=== PATIENT | female | born 2000 | race Caucasian/White ===

== ENCOUNTER 2019-08-20 09:15 | Emergency (ER) | payer BC, OTHER ==
[2019-08-20] MEDS ORDERED: SODIUM CHLORIDE 1,000 ML IV STA (09:21)
--- NOTE | 2019-08-20 09:24 | PDOC ---
Rapid Medical Evaluation Time Seen by Provider: 08/20/19 09:19 Medical Evaluation: Allergies Allergy/AdvReac Type Severity Reaction Status Date / Time No Known Allergies Allergy Verified 08/20/19 09:20 08/20/19 09:22 CC: luq cramping x 2 months with vomiting in the am daily, + weight loss, dark stools, was told by urgent care clinic last month and was told she had a "uti" and took abx with no improvement, menses regular ExaM: LUQ tenderness, vss, afebrile Plan: labs, urione, ivf, stool for occult blood Discharge Disposition - Diagnosis Vomiting - Referrals - Patient Instructions - Post Discharge Activity
[2019-08-20 09:30] VITALS: BMI 19.5
[2019-08-20] MEDS ORDERED: MAG HYDROX/AL HYDROX/SIMETH -MYLANTA- ORAL SUSPENSION PO ONE (09:45)
[2019-08-20] MEDS ORDERED: FAMOTIDINE 20 MG/50 ML IVPB 20 MG/50 ML MG IVPB ONE ×2 (09:45→10:12)
[2019-08-20] MEDS ORDERED: MAG HYDROX/AL HYDROX/SIMETH 30 ML UNIT-DOSE CUP ONE (10:12)
[2019-08-20 10:30] LABS: BASO % 0.4 % (0-2.0); EOS % 2.4 % (0-4.5); HEMATOCRIT 43.5 % (32.4-45.2); HEMOGLOBIN 14.1 GM/dL (10.7-15.3); LYMPH % 21.8 % (8-40); MCHC 32.3 g/dl (32.0-36.0); MEAN CELL VOLUME 86.8 fl (80-96); MEAN PLT VOLUME 9.5 fl (7.5-11.1); MONO % 5.5 % (3.8-10.2); NEUT % 69.9 % (42.8-82.8); PLATELET COUNT 216 K/MM3 (134-434); RBC 5.02 M/mm3 (3.60-5.2); RDW 13.9 % (11.6-15.6); WHITE BLOOD COUNT 7.3 K/mm3 (4.0-10.0)
[2019-08-20 10:45] LABS: ALBUMIN 4.8 g/dl (3.4-5.0); CALCIUM 9.8 mg/dL (8.5-10.1); CREATININE 0.7 mg/dL (0.55-1.3); POTASSIUM 3.8 mmol/L (3.5-5.1)
[2019-08-20 11:30] VITALS: TEMP 98
--- NOTE | 2019-08-20 11:38 | PDOC ---
Documentation entered by Komal Zurita SCRIBE, acting as scribe for Veto Ghosh MD. Veto Ghosh MD: This documentation has been prepared by the tenzinibeYudith Sydney, SCRIBE, under my direction and personally reviewed by me in its entirety. I confirm that the documentation accurately reflects all work, treatment, procedures, and medical decision making performed by me. History of Present Illness - General Chief Complaint: Nausea/Vomiting Stated Complaint: VOMITING Time Seen by Provider: 08/20/19 09:19 History Source: Patient Exam Limitations: No Limitations - History of Present Illness Initial Comments: 08/20/19 10:02 Patient is a 19 year old female with no significant past medical history who presents to the ED with epigastric pain and vomiting since 8:00 this morning. Patient reports she has been endorsing epigastric pain, nausea, vomiting, decreased PO intake and dark stools for the last two months. Pt was seen at Urgent Care at the onset of her symptoms, was diagnosed with a UTI and was prescribed abx and anti nausea medication. Pt states her symptoms had resolved over the past week but started again this morning, prompting her arrival to the ED. Patient reports her abdominal pain is 5/10, intermittent and is exacerbated by eating. Pt states she took Excedrin last night. Patient reports smoking marijuana, but has been smoking less since her symptoms began. Denies chest pain, shortness of breath, headaches, dizziness, fevers, chills. Denies dysuria, frequency, urgency or hematuria. Allergies: NKDA Past History - Medical History Allergies/Adverse Reactions: Allergies Allergy/AdvReac Type Severity Reaction Status Date / Time No Known Allergies Allergy Verified 08/20/19 09:20 COPD: No - Psycho-Social/Smoking History Smoking History: Current some day smoker Have you smoked in the past 12 months: Yes Information on smoking cessation initiated: Yes - Substance Abuse Hx (Audit-C & DAST Scrn) How often the patient has a drink containing alcohol: Monthly or less Number of drinks the patient has on a typical day: 1 or 2 How often the patient has six or more drinks on one occasion: Never Score: In Men: 4 or > Positive; In Women: 3 or > Positive: 1 Screen Result (Pos requires Nsg. Audit-10AR): Negative In the last yr the pt used illegal drug/Rx for NonMed reason: Yes Score: Yes response is considered Positive: 1 Screen Result (Positive result requires Nsg. DAST-10): Positive Review of Systems - Review of Systems Able to Perform ROS?: Yes Comments:: 08/20/19 10:02 CONSTITUTIONAL: No fever, no chills, no fatigue, +decreased PO intake EYES: No visual changes ENT: No ear pain, no sore throat CARDIOVASCULAR: No chest pain, no palpitations RESPIRATORY: No cough, no SOB GI: + epigastric pain, vomiting. +dark stools. GENITOURINARY: No dysuria, no frequency, no hematuria MUSKULOSKELETAL: No back pain, no joint pain, no myalgias SKIN: No rash NEURO: No headache *Physical Exam - Vital Signs Last Vital Signs Temp Pulse Resp BP Pulse Ox 98.6 F 88 18 123/79 100 08/20/19 09:20 08/20/19 09:20 08/20/19 09:20 08/20/19 09:20 08/20/19 09:20 - Physical Exam 08/20/19 10:03 CONSTITUTIONAL: Well-appearing; well-nourished; in no apparent distress HEAD: Normocephalic; atraumatic EYES: PERRL; EOM intact. +mildly pale conjunctiva ENMT: External appears normal; normal oropharynx NECK: Supple; non-tender; no cervical lymphadenopathy CARD: Normal S1, S2; no murmurs, rubs, or gallops RESP: Normal chest excursion with respiration; breath sounds clear and equal bilaterally; no wheezes, rhonchi, or rales ABD: + mild epigastric pain. Soft, non-distended; no palpable organomegaly, no palpable hernias EXT: Normal ROM in all four extremities; non-tender to palpation; distal pulses intact SKIN: Warm, dry, no rash NEURO: No focal neurological deficiencies. ED Treatment Course - LABORATORY CBC & Chemistry Diagram: 08/20/19 09:55 08/20/19 09:55 Medical Decision Making - Medical Decision Making 08/20/19 11:37 Patient is a 19-year-old female who presents to the ED with intermittent epigastric and left upper quadrant pain for the past 2 months, with nonbloody n onbilious vomiting and dark stools. Differential diagnosis includes esophagitis versus gastritis versus peptic ulcer disease. Will obtain CBC/CMP. Will obtain stool for guaiac. Will administer Pepcid. Will reassess. 08/20/19 13:16 Patient reassessed. Patient is resting comfortably, noted to be hemodynamically stable. Tolerates p.o. CBC is within normal limit. Patient is noted to be stool guaiac positive. I suspect peptic ulcer disease versus gastritis versus esophagitis. I discussed the case with Dr. García of GI. Given the patient is hemodynamically stable with a normal H&H. Will administer Protonix, will obtain a COVID swab and will discharge with urgent outpatient follow-up for possible EGD. Will advised to return immediately for worsening symptoms. Discharge - Discharge Information Problems reviewed: Yes Clinical Impression/Diagnosis: Epigastric pain, Guaiac positive stools Vomiting Qualifiers: Vomiting type: unspecified Vomiting Intractability: non-intractable Nausea presence: with nausea Qualified Code(s): R11.2 - Nausea with vomiting, unspeci fied Condition: Stable Disposition: HOME - Follow up/Referral Referrals: Kaycee García DO [Staff Physician] - - Patient Discharge Instructions Additional Instructions: Please take medications as prescribed. Return immediately for severe pain, intractable vomiting, lightheadedness and dizziness. - Post Discharge Activity
[2019-08-20 12:15] LABS: URINE APPEARANCE CLEAR; URINE COLOR YELLOW; URINE GLUCOSE (UA) NEGATIVE (NEGATIVE)
[2019-08-20 12:16] LABS: URINE BILIRUBIN NEGATIVE (NEGATIVE); URINE KETONE TRACE (NEGATIVE); URINE LEUK ESTERASE TRACE (NEGATIVE); URINE NITRITE NEGATIVE (NEGATIVE); URINE PROTEIN NEGATIVE (NEGATIVE); URINE UROBILINOGEN 0.2 mg/dL (0.2-1.0)
[2019-08-20 12:18] LABS: EPI CELLS 20 /uL (0-25.1); HYALINE CASTS 1 /uL (0-3.1); URINE BACTERIA 1049 /uL (0-1359); URINE RBC 14 /uL (0-23.9); URINE WBC 29 /uL (0-25.8)
[2019-08-20] MEDS ORDERED: PANTOPRAZOLE SODIUM 40 MG VIAL ONE (13:05)
[2019-08-20] MEDS ORDERED: PANTOPRAZOLE SODIUM 40 MG VIAL IVPUSH ONE (13:07)
[2019-08-20 13:26] VITALS: BP 120/67; PULSE 76
== END 2019-08-20 13:29 | disposition home or self-care (01) ==
LOC: JER 09:15
PROC: 3E033GC Introduction of Other Therapeutic Substance into Peripheral Vein, Percutaneous Approach (ICD-10-PCS; principal; 2019-08-20)
DX: R10.13 Epigastric pain (principal); R11.2 Nausea with vomiting, unspecified; R19.5 Other fecal abnormalities
CPT/HCPCS: 36415; 80053; 81003; 82272; 83690; 83735; 84703; 85025; 87086; 87186; 99284-25; U0003

== ENCOUNTER 2019-08-31 10:52 | Emergency (ER) | payer BC, OTHER ==
[2019-08-31 11:06] VITALS: BP 128/82; PULSE 89; TEMP 98.5; BMI 18.9
--- NOTE | 2019-08-31 11:07 | PDOC ---
Rapid Medical Evaluation Chief Complaint: Nausea Time Seen by Provider: 08/31/19 11:03 Medical Evaluation: Allergies Allergy/AdvReac Type Severity Reaction Status Date / Time No Known Allergies Allergy Verified 08/20/19 09:20 08/31/19 11:03 I have performed a brief in-person evaluation of this patient. The patient presents with a chief complaint of: pt seen 2 weeks ago for melena with guaic and started on protonix o f/u with GI Dr. García for EGD but pt report office told her she couldnt be seen until September but still having dark stool and nauseas. Denies fevers, BRBPR Pertinent physical exam findings: afebrile in NAD. I have ordered the following: CBC, PT,PTT The patient will proceed to the ED for further evaluation. Discharge Disposition - Diagnosis Guaiac positive stools, Complaint of melena - Discharge Dispostion Condition at time of disposition: Stable - Referrals - Patient Instructions - Post Discharge Activity
[2019-08-31] MEDS ORDERED: FAMOTIDINE 20 MG/50 ML IVPB 20 MG/50 ML MG IVPB ONE ×2 (12:01→12:18)
[2019-08-31 12:25] LABS: BASO % 0.3 % (0-2.0); EOS % 0.9 % (0-4.5); HEMATOCRIT 39.5 % (32.4-45.2); HEMOGLOBIN 12.6 GM/dL (10.7-15.3); LYMPH % 15.5 % (8-40); MCH 27.6 pg (25.7-33.7); MEAN CELL VOLUME 86.3 fl (80-96); MEAN PLT VOLUME 9.9 fl (7.5-11.1); MONO % 5.4 % (3.8-10.2); NEUT % 77.9 % (42.8-82.8); PLATELET COUNT 212 K/MM3 (134-434); RBC 4.57 M/mm3 (3.60-5.2); RDW 13.7 % (11.6-15.6); WHITE BLOOD COUNT 10.4 K/mm3 (4.0-10.0)
[2019-08-31 12:37] LABS: INR 1.14 (0.83-1.09); PROTHROMBIN TIME (PATIENT) 13.5 SEC (9.7-13.0)
[2019-08-31 12:42] LABS: ALBUMIN 4.6 g/dl (3.4-5.0); BILIRUBIN,TOTAL 1.9 mg/dL (0.2-1); BLOOD UREA NITROGEN 8.4 mg/dL (7-18); CALCIUM 9.5 mg/dL (8.5-10.1); CREATININE 0.5 mg/dL (0.55-1.3); POTASSIUM 3.9 mmol/L (3.5-5.1); TOT PROT 7.4 g/dl (6.4-8.2)
--- NOTE | 2019-08-31 13:02 | PDOC ---
History of Present Illness - General Chief Complaint: Nausea Stated Complaint: LWR ABD PAIN Time Seen by Provider: 08/31/19 11:03 History Source: Patient Exam Limitations: No Limitations - History of Present Illness Initial Comments: 08/31/19 12:57 Patient is a 19-year-old female with no past medical history here with complaints of abdominal pain and nausea. The abdominal pain she has had for about a month. States 2 weeks ago she went to urgent care for the same pain and was treated for UTI with no relief of symptoms. She subsequently came to the ER for evaluation and was told that she had guaiac positive stools and she might be bleeding from an ulcer in her stomach. States she was put on Protonix and her vomiting symptoms were resolved however she continues to have nausea and crampy type abdominal pain especially early in the morning or on eating certain foods. States her pain is 8/10, sharp, crampy, intermittent. She also endorses dark stool which is more dark than her usual. She has attempted to get an appointment with GI but the follow-up is on 09/28. She endorses using marijuana every other day secondary to the nausea. LMP: 6 PMHX: as above PSOCHX: (+) MJ every other day, neg etoh, neg cig FamHx; noncontributory ALL: NKDA GENERAL/CONSTITUTIONAL: [No fever or chills. No weakness. No weight change.] HEAD, EYES, EARS, NOSE AND THROAT: [No change in vision. No ear pain or discharge. No sore throat.] CARDIOVASCULAR: [No chest pain or shortness of breath.] RESPIRATORY: [No cough, wheezing, or hemoptysis.] GASTROINTESTINAL: [(+) nausea, vomiting, (-) diarrhea or constipation. No rectal bleeding.] GENITOURINARY: [No dysuria, frequency, or change in urination.] MUSCULOSKELETAL: [No joint or muscle swelling or pain. No neck or back pain.] SKIN AND BREASTS: [No rash or easy bruising.] NEUROLOGIC: [No headache, vertigo, loss of consciousness, or loss of sensation.] PSYCHIATRIC: [No depression or anxiety.] ENDOCRINE: [No increased thirst. No abnormal weight change.] HEMATOLOGIC/LYMPHATIC: [No anemia, easy bleeding, or history of blood clots.] ALLERGIC/IMMUNOLOGIC: [No hives or skin allergy. No latex allergy.] GENERAL: [The patient is awake, alert, and fully oriented, in mild distress.] HEAD: [Normal with no signs of trauma.] EYES: [Pupils equal, round and reactive to light, extraocular movements intact, sclera anicteric, conjunctiva clear.] ENT: [Ears normal, nares patent, oropharynx clear without exudates. Moist mucous membranes.] NECK: [Normal range of motion, supple without lymphadenopathy, JVD, or masses.] LUNGS: [Breath sounds equal, clear to auscultation bilaterally. No wheezes, and no crackles.] HEART: [Regular rate and rhythm, normal S1 and S2 without murmur, rub.] ABDOMEN: [Soft, (+) tenderness upper abd marcelina epigastrium, normoactive bowel sounds. No guarding, no rebound. No masses.] RECTAL: Normal tone, brown stool, EXTREMITIES: [Normal range of motion, no edema. No clubbing or cyanosis. No cords, erythema, or tenderness.] NEUROLOGICAL: [Cranial nerves II through XII grossly intact. Normal speech, nor mal gait.] PSYCH: [Normal mood, normal affect.] SKIN: [Warm, Dry, normal turgor, no rashes or lesions noted.] Past History - Medical History Allergies/Adverse Reactions: Allergies Allergy/AdvReac Type Severity Reaction Status Date / Time No Known Allergies Allergy Verified 08/31/19 11:06 Home Medications: Ambulatory Orders Pantoprazole Sodium [Protonix -] 40 mg PO DAILY #30 tablet.ec 08/20/19 Nitrofurantoin Monohyd/M-Cryst [Macrobid -] 100 mg PO BID #14 capsule 08/31/19 COPD: No - Psycho-Social/Smoking History Smoking History: Never smoked Have you smoked in the past 12 months: Yes - Substance Abuse Hx (Audit-C & DAST Scrn) How often the patient has a drink containing alcohol: Never Score: In Men: 4 or > Positive; In Women: 3 or > Positive: 0 Screen Result (Pos requires Nsg. Audit-10AR): Negative *Physical Exam - Vital Signs Last Vital Signs Temp Pulse Resp BP Pulse Ox 98.5 F 89 18 128/82 97 08/31/19 11:01 08/31/19 11:08/31/19 11:08/31/19 11:01 08/31/19 11:01 ED Treatment Course - LABORATORY CBC & Chemistry Diagram: 08/31/19 12:13 08/31/19 12:13 - ADDITIONAL ORDERS Additional order review: Laboratory Results 08/31/19 08/31/19 12:13 12:13 PT with INR 13.50 H INR 1.14 H PTT (Actin FS) 31.0 Sodium 141 Potassium 3.9 Chloride 108 H Carbon Dioxide 21 Anion Gap 13 BUN 8.4 Creatinine 0.5 L Est GFR (CKD-EPI)AfAm 161.48 Est GFR (CKD-EPI)NonAf 139.32 Random Glucose 81 Calcium 9.5 Total Bilirubin 1.9 H AST 7 L ALT 13 Alkaline Phosphatase 45 Total Protein 7.4 Albumin 4.6 08/31/19 12:13 RBC 4.57 MCV 86.3 MCHC 32.0 RDW 13.7 MPV 9.9 Neutrophils % 77.9 Lymphocytes % 15.5 D Monocytes % 5.4 Eosinophils % 0.9 Basophils % 0.3 - Medications Given in the ED: ED Medications Discontinued Medications Generic Name Dose Route Start Last Admin Trade Name Freq PRN Reason Stop Dose Admin Famotidine/Sodium Chloride 20 mg in 50 mls @ 100 mls/hr 08/31/19 12:01 08/31/19 12:35 Pepcid 20 Mg Premixed Ivpb - IVPB 08/31/19 12:30 100 mls/hr ONCE ONE Administration Medical Decision Making - Medical Decision Making 08/31/19 12:57 Patient is a 19-year-old female with no past medical history here with complaints of abdominal pain and nausea. The abdominal pain she has had for about a month. States 2 weeks ago she went to urgent care for the same pain and was treated for UTI with no relief of symptoms. She subsequently came to the ER for evaluation and was told that she had guaiac positive stools and she might be bleeding from an ulcer in her stomach. States she was put on Protonix and her vomiting symptoms were resolved however she continues to have nausea and crampy type abdominal pain especially early in the morning or on eating certain foods. States her pain is 8/10, sharp, crampy, intermittent. She also endorses dark stool which is more dark than her usual. She has attempted to get an appointment with GI but the follow-up is on 09/28. She endorses using marijuana every other day secondary to the nausea. DDDX: Gastritis, esophagitis, gastric ulcer, less likely colitis, diverticulitis labs Pepcid, IV fluids Reassess Labs reviewed noted patient has had a to count drop in her H&H since 08/19. 08/31/19 15:45 Patient complains of pain given Tylenol 1 g IV. The labs reviewed noted to be guaiac negative. Patient sent for CT abdomen pelvis due to persistent pain in the upper abdomen. 08/31/19 18:54 Patient Full Name: CRISPIN BRANDT Patient Accession No: [id number] Patient : 2000 Reason for Exam: abdominal pain Referring Physician: Patient Name: RIKKI ROA THIS IS A PRELIMINARY REPORT FROM [facility] DATE OF SERVICE: 2019-08-31 17:44:52 IMAGES: [id number] EXAM: ABDOMEN \T\ PELVIS CT WITH CONTR HISTORY: Abdominal pain COMPARISON: None. FINDINGS: The lung bases are clear Focal fat infiltration in the left lobe of the liver along the fissure for the falciform ligament. The upper abdominal visceral organs are otherwise unremarkable No bowel obstruction or distention. Normal appendix. Likely dominant follicle in the right ovary measuring 0.9 cm. The pelvic organs are otherwise unremarkable Small amount of simple fluid in the pelvis may be incidental physiologic fluid No intra-abdominal free air One or more of the following dose reduction techniques were used: automated exposure control, adjustment of the mA and/or kV according to patient size, use of iterative reconstructive technique. THIS DOCUMENT HAS BEEN ELECTRONICALLY SIGNED King Mane MD 08/31/2019 18:37 AHSAN Benitez. Please call [facility] Manager [phone] ([phone]) with questions. INTERPRETING RADIOLOGIST: King Mane MD Electronically Signed: Aug 31, 2019 06:38PM EDT No acute findings on CAT scan will discharge patient with instructions to follow-up with GI. 08/31/19 19:10 Case was discussed with Dr. García, recommend from her to call the office tomorrow morning to schedule a sooner appointment. 08/31/19 19:31 Patient states that every time she has been to the doctor they have told her that she has a UTI. Recommended to her that she follows up with urology. We will give her Macrobid 1 tab p.o. twice daily for 7 days. Urine culture sent. I discussed the physical exam findings, ancillary test results and final diagnoses with the patient. I answered all of the patient's questions. The patient was satisfied with the care received and felt comfortable with the discharge plan and treatment plan. The Patient agrees to follow up with the primary care physician within 24-72 hours. Discharge - Discharge Information Problems reviewed: Yes Clinical Impression/Diagnosis: Guaiac positive stools, Complaint of melena Abdominal pain Qualifiers: Abdominal location: unspecified location Qualified Code(s): R10.9 - Unspecified abdominal pain UTI (urinary tract infection) Qualifiers: Urinary tract infection type: site unspecified Hematuria presence: without hematuria Qualified Code(s): N39.0 - Urinary tract infection, site not specified Condition: Stable Disposition: HOME - Additional Discharge Information Prescriptions: Nitrofurantoin Monohyd/M-Cryst [Macrobid -] 100 mg PO BID #14 capsule - Follow up/Referral Referrals: Kaycee García DO [Staff Physician] - - Patient Discharge Instructions Patient Printed Discharge Instructions: DI for Urinary Tract Infection (UTI), DI for Abdominal Pain-Adult Additional Instructions: Your Discharge Instructions: You must call primary care physician within 24 hours to arrange follow-up. Return to the Emergency Department with any new, persistent or worsening symptoms, for fever, chills, SOB, dizziness or any other concerning changes that may occur. You must call Dr. García's office tomorrow tell them that you need a sooner appointment and it was discussed with the Doctor today for a soon appointment. - Post Discharge Activity
[2019-08-31 14:16] LABS: EPI CELLS 17 /uL (0-25.1); HCG,QUALITATIVE URINE Negative; HYALINE CASTS 1 /uL (0-3.1); PH,URINE 5.5 (5.0-8.0); URINE APPEARANCE CLEAR; URINE BACTERIA 354 /uL (0-1359); URINE BILIRUBIN NEGATIVE (NEGATIVE); URINE COLOR YELLOW; URINE GLUCOSE (UA) NEGATIVE (NEGATIVE); URINE KETONE 4+ (NEGATIVE); URINE LEUK ESTERASE TRACE (NEGATIVE); URINE NITRITE NEGATIVE (NEGATIVE); URINE PROTEIN NEGATIVE (NEGATIVE); URINE RBC 3 /uL (0-23.9); URINE WBC 38 /uL (0-25.8)
[2019-08-31] MEDS ORDERED: ACETAMINOPHEN 1000 MG/100 ML VIAL (NON FORMULARY) IVPB ONE (14:37)
[2019-08-31] MEDS ORDERED: ACETAMINOPHEN INJECTION 100 ML IVPB ONE (14:52)
== END 2019-08-31 19:46 | disposition home or self-care (01) ==
LOC: JER 10:52
PROC: 3E033GC Introduction of Other Therapeutic Substance into Peripheral Vein, Percutaneous Approach (ICD-10-PCS; principal; 2019-08-31)
DX: K92.1 Melena (principal); N39.0 Urinary tract infection, site not specified; R10.9 Unspecified abdominal pain
CPT/HCPCS: 36415; 71046-TC-FY; 74177-TC; 80053; 81003; 82272; 84703; 85025; 85610; 85730; 86850; 86900; 86901; 99285-25; J0131; Q9967

== ENCOUNTER 2019-10-01 05:12 | Day surgery (SDC) | payer BC, OTHER ==
[2019-10-01 10:56] VITALS: BMI 18.7
[2019-10-01 12:03] VITALS: TEMP 97
[2019-10-01 13:17] VITALS: BP 120/80; PULSE 76
--- NOTE | 2019-10-02 17:39 | PATH ---
Surgical Pathology Report Patient Name: RIKKI ROA [facility]. Rec. #: [id number] /Age/Gender: 2000 (Age: 19) / F Account: [id number] Location: U-ENDOSCOPY Taken: 10/01/2019 Received: 10/01/2019 Reported: 10/02/2019 Physicians: Kaycee García M.D. Specimen(s) Received A: SECOND PORTION DUODENUM B: ANTRUM C: GE JUNCTION Clinical History Abdominal pain, nausea/vomiting, anemia Final Diagnosis A. DUODENUM, SECOND PORTION, BIOPSY: DUODENAL MUCOSA WITHOUT SIGNIFICANT PATHOLOGIC FINDINGS. B. GASTRIC ANTRUM, BIOPSY: GASTRIC ANTRAL MUCOSA WITH MILD CHRONIC GASTRITIS. IMMUNOHISTOCHEMICAL STAIN FOR H. PYLORI IS NEGATIVE. C. GE JUNCTION, BIOPSY: GASTRIC CARDIAC TYPE MUCOSA WITH MILD CHRONIC GASTRITIS. NO SQUAMOUS MUCOSA, INTESTINAL METAPLASIA, OR DYSPLASIA IDENTIFIED. IMMUNOHISTOCHEMICAL STAIN FOR H. PYLORI IS NEGATIVE. Positive and negative controls (internal if applicable) show appropriate results. Electronically Signed Kaycee Little M.D. Gross Description A. Received in formalin, labeled "biopsy second portion of duodenum" is a begum, irregular portion of soft tissue measuring 0.1 cm. in greatest dimension. The specimen is submitted in toto in one cassette. B. Received in formalin, labeled "biopsy gastric antrum" is a begum, irregular portion of soft tissue measuring 0.1 cm. in greatest dimension. The specimen is submitted in toto in one cassette. C. Received in formalin, labeled "biopsy GE junction" is a begum, irregular portion of soft tissue measuring 0.1 cm. in greatest dimension. The specimen is submitted in toto in one cassette. 10/01/2019 [facility]10/01/2019
== END 2019-10-01 12:40 | disposition home or self-care (01) ==
LOC: JASU-ENDO 05:12
PROVIDERS: ATTEND Internal Medicine Gastroenterology
PROC: 0DB68ZX Excision of Stomach, Via Natural or Artificial Opening Endoscopic, Diagnostic (ICD-10-PCS; 2019-10-01)
PROC: 0DB48ZX Excision of Esophagogastric Junction, Via Natural or Artificial Opening Endoscopic, Diagnostic (ICD-10-PCS; 2019-10-01)
PROC: 0DB98ZX Excision of Duodenum, Via Natural or Artificial Opening Endoscopic, Diagnostic (ICD-10-PCS; principal; 2019-10-01 11:48)
DX: K29.50 Unspecified chronic gastritis without bleeding (principal); D64.9 Anemia, unspecified; R10.9 Unspecified abdominal pain
CPT/HCPCS: 81025; 88305-TC; 88342-TC